=== PATIENT | male | born 1990 ===

== ENCOUNTER 2024-07-15 20:10 | Emergency (ER) | payer OTHER ==
[~2024-07-15] VITALS: Ht 177.8 cm; Wt 77.3 kg
[2024-07-15 20:12] VITALS: BP 160/101; PULSE 111; RESP 16; TEMP 98.2; O2SAT 97
== END 2024-07-15 21:33 ==
LOC: ER 20:11
DX: Z00.00 Encounter for general adult medical examination without abnormal findings (principal); V89.2XXA Person injured in unspecified motor-vehicle accident, traffic, initial encounter; Y93.89 Activity, other specified; Y92.89 Other specified places as the place of occurrence of the external cause; Y99.9 Unspecified external cause status
CPT/HCPCS: 99283